=== PATIENT | male | born 1965 | race Caucasian/White ===

== ENCOUNTER 2024-08-28 20:48 | Inpatient (IN) | payer OTHER ==
[2024-08-28 21:26] VITALS: BMI 23.3
[2024-08-28 22:17] LABS: VENOUS BASE EXCESS -4.8 mmol/L (-2-2); VENOUS O2 SATURATION 54.3 % (70-80); VENOUS PCO2 43.8 mmHg (38-52); VENOUS PH 7.307 (7.310-7.410)
[2024-08-28 22:18] LABS: BASO % 0.8 % (0-2.0); EOS % 1.9 % (0-4.5); HEMATOCRIT 37.5 % (35.4-49); HEMOGLOBIN 12.4 GM/dL (11.7-16.9); LYMPH % 29.8 % (8-40); MCH 31.3 pg (25.7-33.7); MCHC 32.9 g/dl (32.0-35.9); MONO % 8.7 % (3.8-10.2); NEUT % 58.8 % (42.8-82.8); PLATELET COUNT 163 10^3/uL (134-434); RBC 3.95 M/mm3 (4.00-5.60); RDW 14.1 % (11.9-15.9)
[2024-08-28 22:46] LABS: CHLORIDE 94 mmol/L (98-107); POTASSIUM 3.7 mmol/L (3.5-5.1); SODIUM 131 mmol/L (136-145)
[2024-08-28 22:48] LABS: ALBUMIN 3.7 g/dl (3.4-5.0); ANION GAP 14 mmol/L (4-13); BLOOD UREA NITROGEN 18.1 mg/dL (7-18); CALCIUM 9.4 mg/dL (8.5-10.1); CO2 23 mmol/L (21-32)
[2024-08-28 22:51] LABS: CREATININE 1.7 mg/dL (0.55-1.3); SGOT/AST 136 U/L (15-37); SGPT/ALT 109 U/L (13-61)
[2024-08-28 22:52] LABS: BILIRUBIN,TOTAL 0.5 mg/dL (0.2-1)
[2024-08-28 22:54] LABS: ALK PHOS 205 U/L (45-117); TOT PROT 8.1 g/dl (6.4-8.2)
[2024-08-28 22:56] LABS: GLUCOSE,RANDOM 877 mg/dL (74-106)
[2024-08-28] MEDS ORDERED: ONDANSETRON 4 MG/2 ML VIAL ONE (23:00)
[2024-08-28] MEDS: ONDANSETRON 4 MG/2 ML VIAL IVPUSH ONE (23:08)
[2024-08-28] MEDS: LACTATED RINGERS SOLUTION 1000 ML INFUS.BAG IV ONE (23:08)
[2024-08-28] MEDS ORDERED: INSULIN ASPART SLIDING SCALE (NOVOLOG) 1 VIAL SQ ONE (23:14)
[2024-08-28] MEDS: INSULIN (NOVOLOG) ASPART 100 UNITS/ML 10ML VIAL SQ ONE (23:18)
[2024-08-29] MEDS: LACTATED RINGERS SOLUTION 1000 ML INFUS.BAG IV ONE (00:28)
[2024-08-29 02:40] LABS: VENOUS BASE EXCESS -3.3 mmol/L (-2-2); VENOUS O2 SATURATION 97.8 % (70-80); VENOUS PH 7.379 (7.310-7.410)
[2024-08-29 03:00] LABS: CHLORIDE 105 mmol/L (98-107); SODIUM 140 mmol/L (136-145)
[2024-08-29 03:01] LABS: CALCIUM 9.2 mg/dL (8.5-10.1)
[2024-08-29 03:03] LABS: ANION GAP 12 mmol/L (4-13); BLOOD UREA NITROGEN 13.9 mg/dL (7-18); CO2 24 mmol/L (21-32)
[2024-08-29 03:05] LABS: CREATININE 1.1 mg/dL (0.55-1.3)
[2024-08-29 03:16] LABS: GLUCOSE,RANDOM 436 mg/dL (74-106)
[2024-08-29] MEDS: POTASSIUM CHLORIDE TABS 20 MEQ TABLET.ER (FP) PO ONE (03:50)
[2024-08-29] MEDS ORDERED: POTASSIUM CHLORIDE TABS 20 MEQ TABLET.ER (FP) PO ONE (03:59)
[2024-08-29] MEDS: POTASSIUM CHLORIDE 10 MEQ in SODIUM CHLORIDE 1,000 ML IVPB SCH (04:23)
[2024-08-29] MEDS: SODIUM CHLORIDE 0.9%/KCL 20 MEQ/1,000 ML INFUS.BAG IV SCH ×2 (04:38→09:45)
[2024-08-29 05:48] LABS: PH,URINE 5.5 (5.0-8.0); URINE APPEARANCE CLEAR; URINE BILIRUBIN NEGATIVE (NEGATIVE); URINE COLOR YELLOW; URINE GLUCOSE (UA) 3+ (NEGATIVE); URINE KETONE NEGATIVE (NEGATIVE); URINE LEUK ESTERASE NEGATIVE (NEGATIVE); URINE NITRITE NEGATIVE (NEGATIVE); URINE PROTEIN NEGATIVE (NEGATIVE); URINE UROBILINOGEN 0.2 mg/dL (0.2-1.0)
[2024-08-29] MEDS: POTASSIUM CHLORIDE ORAL LIQUID 20 MEQ/15 ML PO ONE (06:53)
[2024-08-29] MEDS: INSULIN ASPART SLIDING SCALE (NOVOLOG) 1 VIAL SQ SCH ×2 (06:54→11:47)
[2024-08-29 07:45] LABS: HEMATOCRIT 33.4 % (35.4-49); HEMOGLOBIN 11.3 GM/dL (11.7-16.9); MCH 31.4 pg (25.7-33.7); MCHC 33.9 g/dl (32.0-35.9); MEAN CELL VOLUME 92.8 fl (80-96); MEAN PLT VOLUME 8.7 fl (7.5-11.1); PLATELET COUNT 150 10^3/uL (134-434); WHITE BLOOD COUNT 4.6 K/mm3 (4.0-10.0)
[2024-08-29 08:00] LABS: CHLORIDE 106 mmol/L (98-107); POTASSIUM 3.7 mmol/L (3.5-5.1); SODIUM 139 mmol/L (136-145)
[2024-08-29 08:02] LABS: ALBUMIN 3.2 g/dl (3.4-5.0); ANION GAP 9 mmol/L (4-13); BLOOD UREA NITROGEN 15.9 mg/dL (7-18); CALCIUM 9.1 mg/dL (8.5-10.1); CO2 24 mmol/L (21-32); MAGNESIUM 1.9 mg/dL (1.8-2.4)
[2024-08-29 08:04] LABS: CREATININE 0.9 mg/dL (0.55-1.3); SGPT/ALT 89 U/L (13-61)
[2024-08-29 08:05] LABS: PHOSPHOROUS 3.3 mg/dL (2.5-4.9); SGOT/AST 97 U/L (15-37)
[2024-08-29 08:06] LABS: BILIRUBIN,TOTAL 0.7 mg/dL (0.2-1); GLUCOSE,RANDOM 405 mg/dL (74-106)
[2024-08-29 08:10] LABS: ALK PHOS 152 U/L (45-117)
[2024-08-29] MEDS: KCL 10 MEQ IVPB 10 MEQ/100 ML INFUS.BAG IVPB SCH (09:44)
[2024-08-29] MEDS: ENOXAPARIN NA (PORCINE) 40 MG/0.4 ML DISP.SYRIN SQ SCH (09:45)
[2024-08-29] MEDS: SODIUM CHLORIDE 1,000 ML IV SCH (12:20)
[2024-08-30 06:47] LABS: BASO % 0.6 % (0-2.0); EOS % 1.9 % (0-4.5); HEMATOCRIT 36.3 % (35.4-49); HEMOGLOBIN 12.1 GM/dL (11.7-16.9); LYMPH % 33.7 % (8-40); MCH 31.3 pg (25.7-33.7); MCHC 33.2 g/dl (32.0-35.9); MEAN CELL VOLUME 94.2 fl (80-96); MEAN PLT VOLUME 8.9 fl (7.5-11.1); MONO % 9.6 % (3.8-10.2); NEUT % 54.2 % (42.8-82.8); PLATELET COUNT 172 10^3/uL (134-434); RBC 3.85 M/mm3 (4.00-5.60); RDW 14.2 % (11.9-15.9); WHITE BLOOD COUNT 5.2 K/mm3 (4.0-10.0)
[2024-08-30 07:10] LABS: POTASSIUM 4.4 mmol/L (3.5-5.1)
[2024-08-30 07:12] LABS: ALBUMIN 3.2 g/dl (3.4-5.0); CALCIUM 8.8 mg/dL (8.5-10.1)
[2024-08-30 07:13] LABS: BLOOD UREA NITROGEN 12.2 mg/dL (7-18); MAGNESIUM 1.7 mg/dL (1.8-2.4)
[2024-08-30 07:16] LABS: CREATININE 0.9 mg/dL (0.55-1.3); PHOSPHOROUS 2.3 mg/dL (2.5-4.9)
[2024-08-30 07:17] LABS: BILIRUBIN,TOTAL 0.7 mg/dL (0.2-1); TOT PROT 7.1 g/dl (6.4-8.2)
[2024-08-30] MEDS: CLOTRIMAZOLE 1% CREAM TP SCH (11:54)
[2024-08-30] MEDS: INSULIN (LEVEMIR) 100 UNITS/ML UNITS SQ ONE (11:58)
[2024-08-30 13:34] LABS: HIV INTERPRETATION NEGATIVE (NEGATIVE)
[2024-08-31 08:16] LABS: BASO % 0.4 % (0-2.0); EOS % 1.8 % (0-4.5); HEMATOCRIT 36.5 % (35.4-49); HEMOGLOBIN 12.5 GM/dL (11.7-16.9); LYMPH % 39.5 % (8-40); MCH 31.7 pg (25.7-33.7); MCHC 34.1 g/dl (32.0-35.9); MEAN PLT VOLUME 9.2 fl (7.5-11.1); NEUT % 47.3 % (42.8-82.8); PLATELET COUNT 181 10^3/uL (134-434); RBC 3.93 M/mm3 (4.00-5.60); RDW 14.4 % (11.9-15.9); WHITE BLOOD COUNT 5.1 K/mm3 (4.0-10.0)
[2024-08-31 08:36] LABS: ALBUMIN 3.3 g/dl (3.4-5.0); BLOOD UREA NITROGEN 11.5 mg/dL (7-18)
[2024-08-31 08:40] LABS: CREATININE 0.8 mg/dL (0.55-1.3); PHOSPHOROUS 3.8 mg/dL (2.5-4.9)
[2024-08-31 08:41] LABS: BILIRUBIN,TOTAL 0.6 mg/dL (0.2-1); TOT PROT 7.1 g/dl (6.4-8.2)
[2024-08-31] MEDS ORDERED: INSULIN (LEVEMIR) 100 UNITS/ML UNITS SQ SCH ×2 (08:45→22:00)
[2024-08-31] MEDS: INSULIN (LEVEMIR) 100 UNITS/ML UNITS SQ ONE (16:26)
[2024-08-31] MEDS: KCL 10 MEQ IVPB 10 MEQ/100 ML INFUS.BAG IVPB SCH (19:33)
[2024-08-31] MEDS: INSULIN (LEVEMIR) 100 UNITS/ML UNITS SQ SCH (22:01)
[2024-08-31] MEDS: ARTIFICIAL TEARS OPHTHALMIC DROPS OU SCH (23:04)
[2024-09-01] MEDS ORDERED: INSULIN (LEVEMIR) 100 UNITS/ML UNITS SQ SCH (07:00)
[2024-09-01 07:51] LABS: BASO % 0.7 % (0-2.0); HEMATOCRIT 38.2 % (35.4-49); HEMOGLOBIN 12.6 GM/dL (11.7-16.9); LYMPH % 40.9 % (8-40); MCH 31.2 pg (25.7-33.7); MCHC 33.1 g/dl (32.0-35.9); MEAN CELL VOLUME 94.4 fl (80-96); MEAN PLT VOLUME 9.1 fl (7.5-11.1); MONO % 12.3 % (3.8-10.2); NEUT % 43.1 % (42.8-82.8); PLATELET COUNT 183 10^3/uL (134-434); RBC 4.05 M/mm3 (4.00-5.60); RDW 14.3 % (11.9-15.9)
[2024-09-01 08:00] LABS: POTASSIUM 4.2 mmol/L (3.5-5.1)
[2024-09-01 08:05] LABS: ALBUMIN 3.5 g/dl (3.4-5.0); BLOOD UREA NITROGEN 20.3 mg/dL (7-18)
[2024-09-01 08:06] LABS: MAGNESIUM 2.2 mg/dL (1.8-2.4)
[2024-09-01 08:08] LABS: CREATININE 0.9 mg/dL (0.55-1.3)
[2024-09-01 08:09] LABS: BILIRUBIN,TOTAL 0.5 mg/dL (0.2-1); PHOSPHOROUS 4.2 mg/dL (2.5-4.9); TOT PROT 7.5 g/dl (6.4-8.2)
[2024-09-01] MEDS: INSULIN ASPART SLIDING SCALE (NOVOLOG) 1 VIAL SQ SCH (17:48)
[2024-09-01] MEDS: INSULIN (NOVOLOG) ASPART 100 UNITS/ML 10ML VIAL SQ SCH (18:51)
[2024-09-02 05:15] VITALS: RESP 18
[2024-09-02 07:55] LABS: BASO % 1.1 % (0-2.0); HEMATOCRIT 38.6 % (35.4-49); LYMPH % 33.5 % (8-40); MCH 31.6 pg (25.7-33.7); MCHC 33.5 g/dl (32.0-35.9); MEAN CELL VOLUME 94.3 fl (80-96); MEAN PLT VOLUME 9.3 fl (7.5-11.1); MONO % 11.5 % (3.8-10.2); NEUT % 50.9 % (42.8-82.8); PLATELET COUNT 164 10^3/uL (134-434); RDW 14.7 % (11.9-15.9); WHITE BLOOD COUNT 4.8 K/mm3 (4.0-10.0)
[2024-09-02 07:56] LABS: POTASSIUM 4.2 mmol/L (3.5-5.1)
[2024-09-02 08:00] LABS: CALCIUM 8.5 mg/dL (8.5-10.1)
[2024-09-02 08:01] LABS: ALBUMIN 3.5 g/dl (3.4-5.0); BLOOD UREA NITROGEN 20.5 mg/dL (7-18); MAGNESIUM 2.2 mg/dL (1.8-2.4)
[2024-09-02 08:04] LABS: CREATININE 1.2 mg/dL (0.55-1.3); PHOSPHOROUS 4.2 mg/dL (2.5-4.9)
[2024-09-02 08:05] LABS: BILIRUBIN,TOTAL 0.6 mg/dL (0.2-1); TOT PROT 7.5 g/dl (6.4-8.2)
[2024-09-02] MEDS ORDERED: INSULIN (LEVEMIR) 100 UNITS/ML UNITS SQ SCH (08:24)
[2024-09-02 09:12] VITALS: BP 94/80; PULSE 81; TEMP 97.7
[2024-09-02] MEDS: INSULIN (LEVEMIR) 100 UNITS/ML UNITS SQ ONE (10:34)
== END 2024-09-02 14:34 | disposition home or self-care (01) | DRG 420 ==
LOC: JER 20:48 → OBSVTOIN 08-29 03:05 → JERBED 08-29 03:05 → J4W 08-29 05:48
PROVIDERS: ADMIT Internal Medicine; ATTEND Internal Medicine
DX: E11.65 Type 2 diabetes mellitus with hyperglycemia (principal); E11.42 Type 2 diabetes mellitus with diabetic polyneuropathy; E11.319 Type 2 diabetes mellitus with unspecified diabetic retinopathy without macular edema; N17.9 Acute kidney failure, unspecified; R15.9 Full incontinence of feces; R11.2 Nausea with vomiting, unspecified; E87.6 Hypokalemia; L40.9 Psoriasis, unspecified; I10 Essential (primary) hypertension; N47.6 Balanoposthitis; F10.20 Alcohol dependence, uncomplicated; E86.0 Dehydration; Z59.00 Homelessness unspecified
CPT/HCPCS: 36415; 71045-TC-FY; 74018-TC-FY; 76705-TC; 80048; 80053; 80307; 81003; 82010; 82803; 82962; 83036; 83735; 84100; 85025; 85027; 87045; 87046; 87209; 87389; 93005; 93010; 99285-25